=== PATIENT | female | born 1935 | race Caucasian/White ===

== ENCOUNTER → 2016-05-26 | Outpatient (CLI) | payer OTHER ==
[2016-05-26 11:09] LABS: HEMOGLOBIN 13.8 gm/dl (12.3-15.3); RED BLOOD COUNT 5.1 M/UL (4.00-5.10); WHITE BLOOD COUNT 8.9 K/UL (4.5-11.0)
[2016-05-26 11:27] LABS: BUN/CREATININE RATIO 28 (0-10)
== END ==
PROVIDERS: Internal Medicine
DX: M54.2 Cervicalgia (principal); E11.9 Type 2 diabetes mellitus without complications; R53.81 Other malaise; R53.83 Other fatigue; R22.1 Localized swelling, mass and lump, neck; Z88.0 Allergy status to penicillin; Z88.1 Allergy status to other antibiotic agents; Z91.040 Latex allergy status
CPT/HCPCS: 36415; 72050; 80053; 85027; 86140

== ENCOUNTER → 2016-05-29 | Outpatient (CLI) | payer OTHER | LOC: CT 08:03 | DX: R22.1 Localized swelling, mass and lump, neck (principal); Z98.890 Other specified postprocedural states; Z88.0 Allergy status to penicillin; Z88.1 Allergy status to other antibiotic agents; Z91.040 Latex allergy status | CPT/HCPCS: 70491; J7050; Q9962 ==

== ENCOUNTER → 2016-08-14 | Outpatient (CLI) | payer OTHER ==
[2016-08-14 11:29] LABS: RED BLOOD COUNT 4.65 M/UL (4.00-5.10)
[2016-08-14 11:59] LABS: BUN/CREATININE RATIO 26 (0-10)
== END ==
LOC: LAB 10:31
PROVIDERS: Internal Medicine
DX: R53.81 Other malaise (principal); E08.40 Diabetes mellitus due to underlying condition with diabetic neuropathy, unspecified; R53.83 Other fatigue; E55.9 Vitamin D deficiency, unspecified; I10 Essential (primary) hypertension; E78.5 Hyperlipidemia, unspecified; E03.9 Hypothyroidism, unspecified
CPT/HCPCS: 36415; 80053; 80061; 83036; 85027

== ENCOUNTER 2020-09-16 08:51 | Emergency (ER) | payer OTHER ==
[~2020-09-16 08:51] MED LIST: ALDACTONE25 MG PO; BACTRIM DS TAB1 EACH PO; BENTYL 20MG TAB20 MG PO; BETAPACE80 MG PO; BYDUREON P2 MG/0.65 SQ; CATAPRES 0.1MG0.1 MG PO; CLEOCIN HCL300 MG PO; COZAAR100 MG PO; ECOTRIN81 MG PO; ELIQUIS2.5 MG PO; FERROUS SULFAT325 M2 PO; FISH OIL 1,0001 EACH PO; GABAPENTIN300 MG PO; GABAPENTIN600 MG PO; GLUCOPHAGE1000 MG PO; HUMALOG 10100 UNITS/ SC; KEFLEX CAP 500500 MG PO; LANTUS INS100 UTS/M1 SC; LANTUS100 UNIT/1 SC; LANTUS100 UNIT/1 SQ; LEVOFLOXACIN250 MG PO; LOPRESSOR 25 MG25 MG PO; MAPAP325 MG PO; NAPROXEN500 MG PO; NOVOLOG FL100 UNIT/1 SC; NOVOLOG100 UNIT/1 SC; SULFAMETHOXAZO1 EACH PO; SYNTHROID25 MCG PO; VIBRAMYCIN100 MG PO; VITAMIN B-121000 MCG SQ; VITAMIN D 11000 UNIT PO; VITAMIN D35000 UNI1 PO; ZOCOR40 MG PO; ZOFRAN4 MG PO
== END 2020-09-16 10:51 | disposition home or self-care (01) ==
LOC: ER1 08:51
DX: S39.012A Strain of muscle, fascia and tendon of lower back, initial encounter (principal); S70.01XA Contusion of right hip, initial encounter; I48.91 Unspecified atrial fibrillation; I10 Essential (primary) hypertension; E11.9 Type 2 diabetes mellitus without complications; E03.9 Hypothyroidism, unspecified; W01.0XXA Fall on same level from slipping, tripping and stumbling without subsequent striking against object, initial encounter
CPT/HCPCS: 72072; 73502; 96372; 99283; J1885

== ENCOUNTER 2020-10-06 15:40 | Emergency (ER) | payer OTHER ==
[2020-10-06 16:37] LABS: HEMOGLOBIN 12.6 gm/dl (12.3-15.3); RED BLOOD COUNT 4.38 M/UL (4.00-5.10); WHITE BLOOD COUNT 11.1 K/UL (4.5-11.0)
[2020-10-06 17:01] LABS: BUN/CREATININE RATIO 29 (0-10)
[2020-10-06] MEDS ORDERED: HYDROCODON-ACE1 EAC4 PO (19:50)
== END 2020-10-06 20:15 | disposition home or self-care (01) ==
LOC: ER1 15:40
PROVIDERS: Physician Assistant
DX: M25.511 Pain in right shoulder (principal); E11.9 Type 2 diabetes mellitus without complications; I10 Essential (primary) hypertension; F17.200 Nicotine dependence, unspecified, uncomplicated
CPT/HCPCS: 71045; 73030; 80053; 82550; 82553; 83874; 84484; 85025; 93005; 99284

== ENCOUNTER 2020-12-05 11:50 | Emergency (ER) | payer OTHER ==
[~2020-12-05 11:50] MED LIST changes: +HYDROCODON-ACE1 EAC4 PO
[2020-12-05] MEDS ORDERED: VIBRAMYCIN100 MG PO (13:03)
== END 2020-12-05 13:13 | disposition home or self-care (01) ==
LOC: ER1 11:50
DX: S80.01XA Contusion of right knee, initial encounter (principal); S81.001A Unspecified open wound, right knee, initial encounter; L08.9 Local infection of the skin and subcutaneous tissue, unspecified; I48.91 Unspecified atrial fibrillation; E11.9 Type 2 diabetes mellitus without complications; I10 Essential (primary) hypertension; Z90.710 Acquired absence of both cervix and uterus; Z88.0 Allergy status to penicillin; W19.XXXA Unspecified fall, initial encounter
CPT/HCPCS: 73564; 99283

== ENCOUNTER → 2021-02-10 | Outpatient (CLI) | payer OTHER | LOC: MAMO 01-27 11:30 | DX: C50.412 Malignant neoplasm of upper-outer quadrant of left female breast (principal); Z17.0 Estrogen receptor positive status [ER+] | CPT/HCPCS: 77065; G0279 ==

== ENCOUNTER → 2021-02-25 | Outpatient (CLI) | payer OTHER ==
[2021-02-25 09:15] LABS: HEMOGLOBIN 12.4 gm/dl (12.3-15.3); RED BLOOD COUNT 4.4 M/UL (4.00-5.10); WHITE BLOOD COUNT 10.6 K/UL (4.5-11.0)
== END ==
LOC: LAB 08:48
PROVIDERS: Internal Medicine
DX: E03.9 Hypothyroidism, unspecified (principal); E11.42 Type 2 diabetes mellitus with diabetic polyneuropathy; E11.51 Type 2 diabetes mellitus with diabetic peripheral angiopathy without gangrene; E11.52 Type 2 diabetes mellitus with diabetic peripheral angiopathy with gangrene; E53.8 Deficiency of other specified B group vitamins
CPT/HCPCS: 36415; 80053; 80061; 83036; 84681; 85025